=== PATIENT | female | born 1950 | race Caucasian/White ===

== ENCOUNTER 2016-05-18 14:40 | Outpatient (RCR) | payer MEDICAID ==
[2016-04-08 10:10] LABS: BASOPHILS % (AUTO) 1 % (0-10); EOSINOPHILS # (AUTO) 0.1 10^3/uL (0.0-0.3); EOSINOPHILS % (AUTO) 1 % (0-10); LYMPHOCYTES # (AUTO) 1.1 X 10^3 (1.0-4.0); LYMPHOCYTES % (AUTO) 18 % (12-44); MEAN CORPUSCULAR HEMOGLOBIN 33 PG (25-34); MEAN CORPUSCULAR HGB CONC 34 G/DL (32-36); MEAN CORPUSCULAR VOLUME 95 FL (80-99); MEAN PLATELET VOLUME 8.6 FL (7.4-10.4); MONOCYTES # (AUTO) 0.5 X 10^3 (0.0-1.0); MONOCYTES % (AUTO) 9 % (0-12); NEUTROPHILS # (AUTO) 4.3 X 10^3 (1.8-7.8); NEUTROPHILS % (AUTO) 72 % (42-75); PLATELET COUNT 267 10^3/uL (130-400); RED BLOOD COUNT 4.49 10^6/uL (4.35-5.85); RED CELL DISTRIBUTION WIDTH 12.1 % (10.0-14.5)
[2016-04-08 10:31] LABS: ALANINE AMINOTRANSFERASE 12 U/L (0-55); ALBUMIN 4.8 G/DL (3.2-4.5); ANION GAP 9 MMOL/L (5-14); ASPARTATE AMINO TRANSFERASE 17 U/L (5-34); BILIRUBIN,TOTAL 0.9 MG/DL (0.1-1.0); BLOOD UREA NITROGEN 9 MG/DL (7-18); BUN/CREATININE RATIO 12; CALCIUM 9.6 MG/DL (8.5-10.1); CARBON DIOXIDE 23 MMOL/L (21-32); CHLORIDE 102 MMOL/L (98-107); CREATININE SERUM 0.77 MG/DL (0.60-1.30); GFR ESTIMATED > 60; GLUCOSE 94 MG/DL (70-105); POTASSIUM 4.7 MMOL/L (3.6-5.0); SODIUM 134 MMOL/L (135-145); TOTAL PROTEIN 7.3 G/DL (6.4-8.2)
[2016-04-08 11:41] LABS: INR 0.9 (0.8-1.4); PROTHROMBIN TIME PATIENT 12.1 SEC (12.2-14.7)
[2016-05-18 15:08] LABS: BASOPHILS % (AUTO) 1 % (0-10); EOSINOPHILS # (AUTO) 0.1 10^3/uL (0.0-0.3); EOSINOPHILS % (AUTO) 1 % (0-10); LYMPHOCYTES # (AUTO) 1.4 X 10^3 (1.0-4.0); LYMPHOCYTES % (AUTO) 27 % (12-44); MEAN CORPUSCULAR HEMOGLOBIN 33 PG (25-34); MEAN CORPUSCULAR HGB CONC 35 G/DL (32-36); MEAN CORPUSCULAR VOLUME 95 FL (80-99); MEAN PLATELET VOLUME 8.5 FL (7.4-10.4); MONOCYTES # (AUTO) 0.6 X 10^3 (0.0-1.0); MONOCYTES % (AUTO) 12 % (0-12); NEUTROPHILS # (AUTO) 3.1 X 10^3 (1.8-7.8); NEUTROPHILS % (AUTO) 59 % (42-75); PLATELET COUNT 271 10^3/uL (130-400); RED BLOOD COUNT 4.49 10^6/uL (4.35-5.85); RED CELL DISTRIBUTION WIDTH 12.8 % (10.0-14.5); WHITE BLOOD COUNT 5.2 10^3/uL (4.3-11.0)
[2016-05-18 15:48] LABS: ALANINE AMINOTRANSFERASE 13 U/L (0-55); ALBUMIN 4.5 G/DL (3.2-4.5); ANION GAP 10 MMOL/L (5-14); ASPARTATE AMINO TRANSFERASE 18 U/L (5-34); BILIRUBIN,TOTAL 1.3 MG/DL (0.1-1.0); BLOOD UREA NITROGEN 12 MG/DL (7-18); BUN/CREATININE RATIO 15; CALCIUM 9.6 MG/DL (8.5-10.1); CARBON DIOXIDE 24 MMOL/L (21-32); CHLORIDE 103 MMOL/L (98-107); CREATININE SERUM 0.81 MG/DL (0.60-1.30); GFR ESTIMATED > 60; GLUCOSE 108 MG/DL (70-105); POTASSIUM 4.6 MMOL/L (3.6-5.0); SODIUM 137 MMOL/L (135-145)
== END 2016-07-07 | disposition home or self-care (01) ==
LOC: ONC 14:40
PROVIDERS: ATTEND Internal Medicine Hematology & Oncology
DX: C50.411 Malignant neoplasm of upper-outer quadrant of right female breast (principal); C50.412 Malignant neoplasm of upper-outer quadrant of left female breast; R91.1 Solitary pulmonary nodule; J44.9 Chronic obstructive pulmonary disease, unspecified; F17.210 Nicotine dependence, cigarettes, uncomplicated; Z17.0 Estrogen receptor positive status [ER+]; Z79.811 Long term (current) use of aromatase inhibitors
CPT/HCPCS: 36415; 80053; 85025; 85610; 86300; 99213; 99214

== ENCOUNTER 2020-01-25 05:26 | Emergency (ER) | payer MEDICAID ==
[~2020-01-25] VITALS: Ht 157 cm; Wt 45.0 kg
[2020-01-25] MEDS ORDERED: FUROSEMIDE 40 MG/4 ML INJ (LASIX) ONE (05:29)
[2020-01-25] MEDS ORDERED: methylPREDNISolone 125 MG (Solu-MEDROL) VIAL ONE (05:29)
[2020-01-25] MEDS ORDERED: RT-ALBUTEROL SULF 2.5 MG/3 ML PRE-MIX VIAL INH STA (05:35)
[2020-01-25 05:45] LABS: BASOPHILS # (AUTO) 0.2 10^3/uL (0.0-0.1); BASOPHILS % (AUTO) 0 % (0-10); EOSINOPHILS % (AUTO) 5 % (0-10); HEMATOCRIT 40 % (35-52); HEMOGLOBIN 12.4 g/dL (11.5-16.0); LYMPHOCYTES # (AUTO) 3.5 10^3/uL (1.0-4.0); LYMPHOCYTES % (AUTO) 8 % (12-44); MEAN CORPUSCULAR HEMOGLOBIN 28 pg (25-34); MEAN CORPUSCULAR HGB CONC 31 g/dL (32-36); MEAN CORPUSCULAR VOLUME 90 fL (80-99); MEAN PLATELET VOLUME 8.7 fL (9.0-12.2); MONOCYTES # (AUTO) 1.6 10^3/uL (0.0-1.0); MONOCYTES % (AUTO) 4 % (0-12); NEUTROPHILS # (AUTO) 36.1 10^3/uL (1.8-7.8); NEUTROPHILS % (AUTO) 81 % (42-75); PLATELET COUNT 449 10^3/uL (130-400)
[2020-01-25] MEDS ORDERED: RT-IPRATROPIUM (ATROVENT) 0.5MG/2.5ML AMP IH ONE (05:45)
[2020-01-25] MEDS ORDERED: methylPREDNISolone 125 MG (Solu-MEDROL) VIAL IVP ONE (05:45)
[2020-01-25] MEDS ORDERED: FUROSEMIDE 40 MG/4 ML INJ (LASIX) IVP ONE (05:45)
--- NOTE | 2020-01-25 05:55 | Diagnostic Imaging Report ---
CHEST 1 VIEW, AP/PA ONLY INDICATION: Shortness of air. COMPARISON: None available. FINDINGS: Consolidations are present throughout the majority of the left lung and right lung base. Potential air-fluid level in the left upper lung zone. No pleural effusion or pneumothorax. Heart is normal in size. IMPRESSION: 1. Bilateral pulmonary consolidations are likely due to multifocal pneumonia. There is a potential fluid-filled cavitary lesion in the left upper lobe. Consider CT chest with contrast for further characterization. Dictated by: Dictated on workstation # [id number]
[2020-01-25 05:58] LABS: WHITE BLOOD COUNT 44.5 10^3/uL (4.3-11.0)
[2020-01-25 05:58] LABS: ABG BASE EXCESS 1.2 MMOL/L (-2.5-2.5); ABG OXYGEN SATURATION 90 % (94-100); ABG PCO2 49 MMHG (35-45); ABG PO2 65 MMHG (79-93)
[2020-01-25 05:59] LABS: ALBUMIN 2.9 GM/DL (3.2-4.5); CHLORIDE 93 MMOL/L (98-107); POTASSIUM 3.8 MMOL/L (3.6-5.0); SODIUM 130 MMOL/L (135-145)
[2020-01-25 06:01] LABS: ABG PH 7.34 (7.37-7.43)
[2020-01-25 06:01] LABS: AMYLASE 26 U/L (25-125); CALCIUM 8.5 MG/DL (8.5-10.1); INR 0.9 (0.8-1.4); PROTHROMBIN TIME PATIENT 12.3 SEC (12.2-14.7)
[2020-01-25 06:02] LABS: GLUCOSE 237 MG/DL (70-105); TOTAL PROTEIN 5.6 GM/DL (6.4-8.2)
[2020-01-25 06:02] LABS: ALLENS TEST POSITIVE; INSPIRED O2 15; PATIENT TEMP 36.1; VENTILATOR NO
[2020-01-25 06:03] LABS: CARBON DIOXIDE 24 MMOL/L (21-32)
[2020-01-25 06:04] LABS: BILIRUBIN,TOTAL 0.4 MG/DL (0.1-1.0)
[2020-01-25 06:05] LABS: ALKALINE PHOSPHATASE 102 U/L (40-136); CREATININE SERUM 0.66 MG/DL (0.60-1.30); GFR ESTIMATED > 60
[2020-01-25] MEDS ORDERED: NS IV 1000 ML 1,000 ML IV SCH (06:05)
[2020-01-25 06:06] LABS: BUN/CREATININE RATIO 21
[2020-01-25 06:08] LABS: ALANINE AMINOTRANSFERASE 8 U/L (0-55); MAGNESIUM 1.8 MG/DL (1.6-2.4)
[2020-01-25 06:09] LABS: LIPASE 4 U/L (8-78)
[2020-01-25 06:10] LABS: CREATINE KINASE 21 U/L (29-168)
[2020-01-25] MEDS ORDERED: AZITHROMYCIN INJECTION 500 MG in NS (IVPB) 250 ML IV ONE (06:15)
[2020-01-25] MEDS ORDERED: cefTRIAXone FOR IV USE 1,000 MG in WATER (STERILE) FOR INJECTION 10 ML IV ONE (06:15)
[2020-01-25 06:16] LABS: CREATINE KINASE MB 1.6 NG/ML (<6.6)
[2020-01-25 06:18] LABS: BILIRUBIN,URINE NEGATIVE (NEGATIVE); CLARITY,URINE CLEAR; COLOR,URINE YELLOW; GLUCOSE, URINE (UA) NEGATIVE (NEGATIVE); KETONES,URINE NEGATIVE (NEGATIVE); LEUKOCYTE ESTERASE ,URINE NEGATIVE (NEGATIVE); NITRITE,URINE NEGATIVE (NEGATIVE); PROTEIN,URINE NEGATIVE (NEGATIVE)
--- NOTE | 2020-01-25 06:30 | NUR ---
dr huggins spoke with pt's family.
[2020-01-25 06:31] VITALS: BP 137/91
--- NOTE | 2020-01-25 06:38 | ED Respiratory ---
General Chief Complaint: Respiratory Problems Stated Complaint: STEMI Nursing Triage Note: Pt arrives from home with significant respiratory distress; pt is a breast CA patient. Pt on 15LPM via [facility]. sp02 88%. History of Present Illness Date Seen by Provider: Jan 25, 2020 Time Seen by Provider: 06:30 Initial Comments 69-year-old female brought in by EMS. Patient brought in due to significant respiratory distress. Patient has known right-sided breast cancer with likely metastatic lung cancer. Patient is a DO NOT RESUSCITATE patient on hospice. Patient developed increasingly worse shortness breath this morning per family. When EMS arrived they were concerned about possible STEMI and brought her from [facility] directly to this ER. Patient's O2 saturations were in the mid 80s with moderate distress. No reports of fevers or other systemic complaints at this time. History of present illness is limited due to patient's condition Allergies and Home Medications Allergies Coded Allergies: morphine (Verified Allergy, Unknown, 01/25/20) Patient Home Medication List Home Medication List Reviewed: Yes Review of Systems Review of Systems Constitutional: see HPI Respiratory: see HPI, short of breath Cardiovascular: see HPI Gastrointestinal: no symptoms reported Musculoskeletal: no symptoms reported Skin: see HPI, other (significant right-sided breast cancer) Psychiatric/Neurological: No Symptoms Reported Hematologic/Lymphatic: No Symptoms Reported Past Laswsyd-Jsimck-Fgjefx Hx Past Med/Social Hx: Reviewed Nursing Past Med/Soc Hx Patient Social History Alcohol Use: Denies Use Recreational Drug Use: No Smoking Status: Current Everyday Smoker 2nd Hand Smoke Exposure: Yes Recent Foreign Travel: No Contact w/Someone Who Travel: No Recent Infectious Disease Expo: No Recent Hopitalizations: No Immunizations Up To Date Tetanus Booster (TDap): Unknown Seasonal Allergies Seasonal Allergies: No Past Medical History Surgeries: Yes Respiratory: Yes COPD Cardiac: No Neurological: No Genitourinary: No Gastrointestinal: Yes Gastroesophageal Reflux Musculoskeletal: No Endocrine: Yes HEENT: No Cancer: Yes Breast Psychosocial: Yes Anxiety Integumentary: No Physical Exam Vital Signs - First Documented 01/25/20 01/25/20 05:26 05:38 Temp 36.1 Pulse 138 Resp 34 B/P (MAP) 151/102 (118) Pulse Ox 88 O2 Delivery Non Rebreather O2 Flow Rate 15.00 Capillary Refill : Less Than 3 Seconds Height: 5'2.00" Weight: 107lbs. 0.0oz. [id number]; 18.00 BMI Method: General Appearance: severe distress Respiratory: decreased breath sounds (greater than right), wheezing Cardiovascular: tachycardia Gastrointestinal: non tender, soft Neurologic/Psychiatric: other (patient was initially somewhat confused but improved with hypoxemia resolving) Skin: normal color, warm/dry, other (significant nodular skin changes with swelling and color changes to right breast consistent with known right-sided breast cancer) Focused Exam Lactate Level 01/25/20 05:43: Lactic Acid Level 3.15*H 01/25/20 08:17: Lactic Acid Level 2.93*H Lactic Acid Level Laboratory Tests Test 01/25/20 05:43 01/25/20 08:17 Lactic Acid Level 3.15 MMOL/L (0.50-2.00) *H 2.93 MMOL/L (0.50-2.00) *H Progress/Results/Core Measures Suspected Sepsis Recent Fever Within 48 Hours: No Infection Criteria Present: None New/Unexplained Altered Menta: No Sepsis Screen: No Definite Risk SIRS Temperature: Pulse: 138 Respiratory Rate: 34 Laboratory Tests 01/25/20 05:29: White Blood Count 44.5*H Blood Pressure 151 /102 Mean: 118 01/25/20 05:43: Lactic Acid Level 3.15*H 01/25/20 08:17: Lactic Acid Level 2.93*H Laboratory Tests 01/25/20 05:29: Creatinine 0.66, INR Comment 0.9, Platelet Count 449H, Total Bilirubin 0.4 Results/Orders Lab Results Laboratory Tests Test 01/25/20 05:29 01/25/20 05:43 01/25/20 05:48 01/25/20 06:00 Range/Units White Blood Count 44.5 *H 4.3-11.0 10^3/uL Red Blood Count 4.39 3.80-5.11 10^6/uL Hemoglobin 12.4 11.5-16.0 g/dL Hematocrit 40 35-52 % Mean Corpuscular Volume 90 80-99 fL Mean Corpuscular Hemoglobin 28 25-34 pg Mean Corpuscular Hemoglobin Concent 31 L 32-36 g/dL Red Cell Distribution Width 13.6 10.0-14.5 % Platelet Count 449 H 130-400 10^3/uL Mean Platelet Volume 8.7 L 9.0-12.2 fL Immature Granulocyte % (Auto) 2 % Neutrophils (%) (Auto) 81 H 42-75 % Lymphocytes (%) (Auto) 8 L 12-44 % Monocytes (%) (Auto) 4 0-12 % Eosinophils (%) (Auto) 5 0-10 % Basophils (%) (Auto) 0 0-10 % Neutrophils # (Auto) 36.1 H 1.8-7.8 10^3/uL Lymphocytes # (Auto) 3.5 1.0-4.0 10^3/uL Monocytes # (Auto) 1.6 H 0.0-1.0 10^3/uL Eosinophils # (Auto) 2.0 H 0.0-0.3 10^3/uL Basophils # (Auto) 0.2 H 0.0-0.1 10^3/uL Immature Granulocyte # (Auto) 1.0 H 0.0-0.1 10^3/uL Neutrophils % (Manual) 68 % Lymphocytes % (Manual) 6 % Monocytes % (Manual) 4 % Eosinophils % (Manual) 4 % Band Neutrophils 17 % Atypical Lymphocytes 1 % Anisocytosis MODERATE Microcytosis MODERATE Prothrombin Time 12.3 12.2-14.7 SEC INR Comment 0.9 0.8-1.4 Activated Partial Thromboplast Time 23 L 24-35 SEC Sodium Level 130 L 135-145 MMOL/L Potassium Level 3.8 3.6-5.0 MMOL/L Chloride Level 93 L 98-107 MMOL/L Carbon Dioxide Level 24 21-32 MMOL/L Anion Gap 13 5-14 MMOL/L Blood Urea Nitrogen 14 7-18 MG/DL Creatinine 0.66 0.60-1.30 MG/DL Estimat Glomerular Filtration Rate > 60 BUN/Creatinine Ratio 21 Glucose Level 237 H 70-105 MG/DL Calcium Level 8.5 8.5-10.1 MG/DL Corrected Calcium 9.4 8.5-10.1 MG/DL Magnesium Level 1.8 1.6-2.4 MG/DL Total Bilirubin 0.4 0.1-1.0 MG/DL Aspartate Amino Transf (AST/SGOT) 14 5-34 U/L Alanine Aminotransferase (ALT/SGPT) 8 0-55 U/L Alkaline Phosphatase 102 40-136 U/L Total Creatine Kinase 21 L 29-168 U/L Creatine Kinase MB 1.6 <6.6 NG/ML Myoglobin 59.1 10.0-92.0 NG/ML Troponin I 0.057 H <0.028 NG/ML B-Type Natriuretic Peptide 213.5 H <100.0 PG/ML Total Protein 5.6 L 6.4-8.2 GM/DL Albumin 2.9 L 3.2-4.5 GM/DL Amylase Level 26 25-125 U/L Lipase 4 L 8-78 U/L Lactic Acid Level 3.15 *H 0.50-2.00 MMOL/L Coronavirus 2019 (HELEN) Negative Negative Blood Gas Puncture Site LEFT RADIAL Blood Gas Patient Temperature 36.1 Arterial Blood pH 7.34 *L 7.37-7.43 Arterial Blood Partial Pressure CO2 49 H 35-45 MMHG Arterial Blood Partial Pressure O2 65 L 79-93 MMHG Arterial Blood HCO3 26 23-27 MMOL/L Arterial Blood Total CO2 28.0 21.0-31.0 MMOL/L Arterial Blood Oxygen Saturation 90 L 94-100 % Arterial Blood Base Excess 1.2 -2.5-2.5 MMOL/L Bay Test POSITIVE Blood Gas Ventilator Setting NO Blood Gas Inspired Oxygen 15 Urine Color YELLOW Urine Clarity CLEAR Urine pH 6.0 5-9 Urine Specific [place] 1.010 L 1.016-1.022 Urine Protein NEGATIVE NEGATIVE Urine Glucose (UA) NEGATIVE NEGATIVE Urine Ketones NEGATIVE NEGATIVE Urine Nitrite NEGATIVE NEGATIVE Urine Bilirubin NEGATIVE NEGATIVE Urine Urobilinogen 0.2 < = 1.0 MG/DL Urine Leukocyte Esterase NEGATIVE NEGATIVE Urine RBC (Auto) NEGATIVE NEGATIVE Urine RBC NONE /HPF Urine WBC 0-2 /HPF Urine Squamous Epithelial Cells 2-5 /HPF Urine Crystals NONE /LPF Urine Bacteria NEGATIVE /HPF Urine Casts PRESENT /LPF Urine Granular Casts 0-2 H /LPF Urine Mucus NEGATIVE /LPF Urine Culture Indicated NO Test 01/25/20 08:17 Range/Units Lactic Acid Level 2.93 *H 0.50-2.00 MMOL/L My Orders Orders - ANN GROVE DO Lorazepam Tablet (Ativan Tablet) (01/25/20 10:34) Medications Given in ED Current Medications Medications Dose Ordered Sig/Clair Route Start Time Stop Time Status Last Admin Dose Admin Azithromycin 500 mg/Sodium Chloride 255 ml @ 250 mls/hr ONCE ONCE IV 01/25/20 06:15 01/25/20 07:16 DC 01/25/20 06:33 250 MLS/HR Ceftriaxone Sodium 1000 mg/ Sterile Water 10 ml @ 200 mls/hr ONCE ONCE IV 01/25/20 06:15 01/25/20 06:17 DC 01/25/20 06:33 200 MLS/HR Dexamethasone Sodium Phosphate 20 mg ONCE ONCE IH 01/25/20 05:45 01/25/20 05:46 DC 01/25/20 06:30 20 MG Furosemide 40 mg ONCE ONCE IVP 01/25/20 05:45 01/25/20 05:46 DC 01/25/20 05:39 40 MG Ipratropium [place] 0.5 mg ONCE ONCE IH 01/25/20 05:45 01/25/20 05:46 DC 01/25/20 06:30 0.5 MG Methylprednisolone Sodium Succinate 125 mg ONCE ONCE IVP 01/25/20 05:45 01/25/20 05:46 DC 01/25/20 05:39 125 MG Vital Signs/I&O 01/25/20 01/25/20 01/25/20 05:26 05:38 06:31 Temp 36.1 Pulse 138 139 Resp 34 33 B/P (MAP) 151/102 (118) Pulse Ox 88 88 93 O2 Delivery Non Rebreather Non Rebreather O2 Flow Rate 15.00 100.00 Capillary Refill : Less Than 3 Seconds Blood Pressure Mean: 118 Progress Note : Progress Note Patient is a hospice patient. She does not want any aggressive treatment. I did talk with both her family and Richelle from [facility]. We will arrange outpatient BiPAP as needed. Patient will be transferred home on hospice. Departure Impression Primary Impression: Breast cancer in female Qualified Codes: C50.911 - Malignant neoplasm of unspecified site of right female breast Additional Impressions: Hospice care patient Respiratory distress Pneumonia Qualified Codes: J18.9 - Pneumonia, unspecified organism Disposition: 01 HOME, SELF-CARE Condition: Improved Departure-Patient Inst. Referrals: ADDI TRAN MD (PCP/Family) Primary Care Physician Patient Instructions: Palliative Care ANN GROVE DO Jan 25, 2020 06:38
[2020-01-25 06:41] LABS: BACTERIA,URINE NEGATIVE /HPF; GRANULAR CASTS,URINE 0-2 /LPF; WBC,URINE 0-2 /HPF
--- NOTE | 2020-01-25 06:46 | NUR ---
[facility] contacted.
[2020-01-25 06:47] LABS: ANISOCYTOSIS MODERATE; ATYPICAL LYMPHOCYTES 1 %; BAND NEUTROPHILS 17 %; EOSINOPHILS % (MANUAL) 4 %; LYMPHOCYTES % (MANUAL) 6 %; MICROCYTOSIS MODERATE; MONOCYTES % (MANUAL) 4 %; NEUTROPHILS % (MANUAL) 68 %
--- NOTE | 2020-01-25 07:30 | NUR ---
hospice called and reports they ordered a stat bypap machine to be delivered to pt home residence. reports they will call when it is set up for pt to go home. pt informed of progress to discharge.
[2020-01-25] MEDS ORDERED: LORazepam 0.5 MG (ATIVAN) TABLET PO STA (10:34)
--- NOTE | 2020-01-25 10:52 | NUR ---
pt family updated on pt condition and transportation to home.
[2020-01-25 11:30] VITALS: BP 89/68
== END 2020-01-25 11:29 | disposition home or self-care (01) ==
LOC: EDUNIT# 05:26 → ER 05:27
DX: C50.911 Malignant neoplasm of unspecified site of right female breast (principal); R06.03 Acute respiratory distress; J18.9 Pneumonia, unspecified organism; F17.200 Nicotine dependence, unspecified, uncomplicated; Z20.828 Contact with and (suspected) exposure to other viral communicable diseases; Z88.5 Allergy status to narcotic agent
CPT/HCPCS: 36415; 51702; 71045; 80053; 81000; 82150; 82550; 82553; 82805; 83605; 83690; 83735; 83874; 83880; 84484; 85007; 85027; 85610; 85730; 87040; 87635; 93005; 93041; 94640; 99291